=== PATIENT | female | born 1995 | race Two or more races ===

== ENCOUNTER 2022-06-24 08:34 | Outpatient (CLI) | payer OTHER | END 2022-06-24 11:10 | disposition home or self-care (01) | LOC: PRENATAL 08:34 | PROVIDERS: ATTEND Obstetrics & Gynecology Maternal & Fetal Medicine | DX: O35.9XX0 Maternal care for (suspected) fetal abnormality and damage, unspecified, not applicable or unspecified (principal); O35.3XX0 Maternal care for (suspected) damage to fetus from viral disease in mother, not applicable or unspecified; O43.90 Unspecified placental disorder, unspecified trimester; Z3A.20 20 weeks gestation of pregnancy ==